=== PATIENT | female | born 1955 | race Caucasian/White ===

== ENCOUNTER 2020-07-15 13:51 | Emergency (ER) | payer MEDICAID, SELFPAY ==
[~2020-07-15] VITALS: Ht 167.6 cm; Wt 65.0 kg
--- NOTE | 2020-07-15 14:00 | NUR ---
THIS IS A 64 YO F BIB EMS W/ C/O CP. PER EMS [facility] WAS CALLED ON PT BY FAMILY TO ESCORT PT OFF OF PROPERTY. WHEN [facility] ARRIVED PT BEGAN TO C/O CP. UPON ARRIVAL PT IS TEARFUL, DEMANDING AND USING INAPPROPRIATE LANGUAGE. PT EDUCATED ON LANGUAGE USE AND PRESENCE OF OTHER PTS IN DEPT. PT RESTING ON GURNEY W/ CALL LIGHT IN REACH, RESP EVEN AND UNLABORED, NADN.
[2020-07-15] MEDS ORDERED: PROMETHAZINE 25 MG/ML, 1ML IM ONE (15:00)
[2020-07-15] MEDS ORDERED: ALBUTEROL/IPRATROPIUM 2.5MG/0.5MG, 3 ML NPPB ONE (15:00)
--- NOTE | 2020-07-15 15:00 | NUR ---
PT REFUSING TO GIVE ARM TO LAB FOR DRAW. PT EDUCATED ON NEED FOR LAB WORK IN ORDER TO DETERMINE DX.
[2020-07-15] MEDS ORDERED: PROMETHAZINE 25 MG/ML, 1ML ONE (15:04)
[2020-07-15] MEDS ORDERED: ALBUTEROL SULFATE 2.5MG/0.5ML ONE (15:04)
[2020-07-15] MEDS ORDERED: ALBUTEROL/IPRATROPIUM 2.5MG/0.5MG, 3 ML ONE (15:16)
[2020-07-15 15:17] LABS: BASOPHILS % (AUTO) 0 % (0-1); EOSINOPHILS % (AUTO) 0 % (1-7); LYMPHOCYTES # (AUTO) 0.69 x10^3/uL (1-3.4); LYMPHOCYTES % (AUTO) 10 % (22-44); MD NO; MEAN CORPUSCULAR HEMOGLOBIN 30.7 pg (27.0-34.8); MEAN CORPUSCULAR VOLUME 93.1 fL (80-100); MEAN PLATELET VOLUME 7.3 fL (7.4-10.4); MONOCYTES # (AUTO) 0.36 x10^3/uL (0.2-0.8); MONOCYTES % (AUTO) 5 % (2-9); NEUTROPHILS # (AUTO) 5.74 x10^3/uL (1.8-6.8); NEUTROPHILS % (AUTO) 85 % (42-75); PLATELET COUNT 326 x10^3/uL (130-400); RED BLOOD COUNT 4.47 x10^6/uL (3.82-5.3); RED CELL DISTRIBUTION WIDTH 15.4 % (9.6-15.2)
[2020-07-15 15:26] LABS: ANION GAP 10 mmol/L (5-15); CALCIUM 8.9 mg/dL (8.5-10.1); CHLORIDE 107 mmol/L (98-107)
[2020-07-15 15:31] LABS: CREATININE 0.53 mg/dL (0.55-1.02); TROPONIN I < 0.015 ng/mL (0.000-0.045)
[2020-07-15 15:53] VITALS: BP 162/88
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
== END 2020-07-15 16:21 | disposition home or self-care (01) ==
LOC: ED 16:15
DX: R07.89 Other chest pain (principal); I48.91 Unspecified atrial fibrillation; R11.2 Nausea with vomiting, unspecified; J44.9 Chronic obstructive pulmonary disease, unspecified; R94.31 Abnormal electrocardiogram [ECG] [EKG]
CPT/HCPCS: 36415; 80048; 84484; 85025; 93005; 94640; 96372; 99284; J2550

== ENCOUNTER 2020-07-15 17:36 | Emergency (ER) | payer MEDICAID, SELFPAY ==
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
== END 2020-07-15 18:30 | disposition left against medical advice (07) ==
LOC: ED 18:06
DX: R45.1 Restlessness and agitation (principal); Z53.21 Procedure and treatment not carried out due to patient leaving prior to being seen by health care provider